=== PATIENT | male | born 1935 | race Caucasian/White ===

== ENCOUNTER 2016-07-27 10:38 | Emergency (ER) | payer MEDICARE, BC ==
[~2016-07-27 10:38] MED LIST: ADULT LOW DOSE81 MG PO; ALBUTEROL MDI IH; ALLOPURINOL300 MG PO; AMITIZA24 MCG PO; ATARAX-DPS25 MG PO; BETAPACE80 MG PO; CARDURA DPS2 MG PO; CELEXA DPS20 MG PO; COUMADIN5 MG PO; COUMADIN7.5 MG PO; DELTASONE DPS10 MG PO; DUONEB DPS3 ML IH; FOLIC ACID1 MG PO; GLUCOPHAGE-DPS500 MG PO; IMDUR DPS30 MG PO; KLOR-CON M2020 ME1 PO; LASIX DPS40 MG PO; LASIX80 MG PO; LEVAQUIN DPS750 MG PO; MAG-OX400 MG PO; MIRALAX PACKET17 GM PO; NITRO SL; NITROSTAT0.4 MG SL; OMEGA-3 DPS1000 MG PO; OMNICEF DPS300 MG PO; PEPCID DPS20 MG PO; PRAVACHOL40 MG PO; PROSCAR DPS5 MG PO; PROSCAR5 MG PO; PROTONIX40 MG PO; SLOW-MAG64 MG PO; SYMBICORT80 MCG/6.9 IH; TYLENOL EXTRA500 M1 PO; ULTRAM DPS50 MG PO
--- NOTE | 2016-07-28 09:21 | ER ---
ADMIT: 07/27/2016 RM/LOC: ER [facility] MR#: [id number] [facility] [address] [place], [place] [id number] [address] [place] [address] Emergency Room Report SEX: M AGE: 81 : 1935 DATE: 07/27/2016 TIME: 1038 hours. Please refer to my T-sheet for complete H and P. HISTORY OF PRESENT ILLNESS: Briefly, the patient is a 81-year-old who wears oxygen at home. He was apparently changing the water back on it when he turned, stumbled and fell. He landed on his left knee and a little bit on his left hip, mostly his left knee. No other injury. He was able to get up, but he had some problems. This happened two days ago. He said it is still hurting him. He wanted it evaluated. It is causing pain when he walks and he points to mostly his left knee. PHYSICAL EXAMINATION: VITAL SIGNS: His vital signs are stable. HEENT: Grossly normal. LUNGS: Clear. ABDOMEN: Soft. EXTREMITIES: His left knee has some swelling, minimal, it is stable. He is diffusely tender. He has no pain of the ankle. Really minimal pain in the left hip, but a little bit with range of motion. Neurovascularly intact distally. EMERGENCY DEPARTMENT COURSE: X-ray of his left knee and left hip showed no obvious fracture. Put an Marcus bandage on his knee. He was able to get up and walk. I checked his INR, it was 1.17. I had a long discussion with him. He is ready for discharge. ASSESSMENT: 1. Left knee/hip contusion. 2. Fall. 3. 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 He normally takes a combination of 7.5's and 5's throughout the week daily. PLAN: I am going to increase him to 7.5 a day. I want him to follow up with Dr. James next week. Return if worse. Rest. Ice. Elevate. Marcus bandage as needed. Parish Kaplan MD/ lakisha JOB #: [id number] CC: Parish Kaplan MD, Attending Physician Romeo James MD
== END 2016-07-27 12:58 | disposition home or self-care (01) ==
LOC: ER 10:38
DX: S80.02XA Contusion of left knee, initial encounter (principal); S70.02XA Contusion of left hip, initial encounter; I48.91 Unspecified atrial fibrillation; I10 Essential (primary) hypertension; E11.9 Type 2 diabetes mellitus without complications; W01.0XXA Fall on same level from slipping, tripping and stumbling without subsequent striking against object, initial encounter